=== PATIENT | female | born 1950 | race Caucasian/White ===

== ENCOUNTER → 2017-11-27 | Outpatient (CLI) | payer MEDICARE ==
[~2017-11-27] MED LIST: AMI25 PO; ASPI-1471 PO; ATOR20TA65 PO; CYCL10TA29 PO; ESCI20TA8 PO; ESOM40CA42 PO; FERR159T PO; GLY5 FT; GLY5 PO; GOLYTE PO; HYDR-2966 PO; LEVO50TA86 PO; LEVO75TA73 PO; LISI-362 PO; LOR05 PO; METF-420 PO; NAPR-1043 PO; OMEP40CA48 PO; SIMV-54 PO; SITA100T PO
[2017-11-27 09:55] LABS: PLATELET COUNT, AUTOMATED 480 K/uL (150-450)
== END ==
LOC: LAB 09:28
PROVIDERS: ATTEND Internal Medicine Endocrinology, Diabetes & Metabolism
DX: D64.9 Anemia, unspecified (principal)
CPT/HCPCS: 36415; 83540; 83550; 85025

== ENCOUNTER → 2018-01-03 | Outpatient (CLI) | payer MEDICARE ==
[2018-01-03 11:37] LABS: PLATELET COUNT, AUTOMATED 356 K/uL (150-450)
== END ==
LOC: LAB 11:05
PROVIDERS: ATTEND Internal Medicine Endocrinology, Diabetes & Metabolism
DX: D50.9 Iron deficiency anemia, unspecified (principal); E03.9 Hypothyroidism, unspecified; E11.65 Type 2 diabetes mellitus with hyperglycemia; R53.83 Other fatigue
CPT/HCPCS: 36415; 82040; 82247; 82310; 82374; 82435; 82565; 82947; 83540; 83550; 84075; 84132; 84155; 84295; 84439; 84443; 84450; 84460; 84520; 85025

== ENCOUNTER → 2018-03-07 | Outpatient (CLI) | payer MEDICARE | LOC: LAB 09:49 | PROVIDERS: ATTEND Internal Medicine Cardiovascular Disease | DX: I10 Essential (primary) hypertension (principal) | CPT/HCPCS: 36415; 82465; 83718; 84478; 85027 ==

== ENCOUNTER → 2018-03-16 | Outpatient (CLI) | payer MEDICARE ==
[~2018-03-16] MED LIST changes: -METF-420 PO; +METF-421 PO
--- NOTE | 2018-03-17 10:09 | RADIOLOGY IMAGING REPORT ---
FACILITY: [facility] [place] PATIENT NAME: Mary Dorsey : 1950 MR: [id number] V: [id number] EXAM DATE: ORDERING PHYSICIAN: JOEY PRIETO TECHNOLOGIST: Location: [facility] [place] Patient: Mary Dorsey : 1950 Visit/Account:[id number] Date of Sevice: 03/16/2018 EXAMINATION: Single Isotope SPECT Imaging with Exercise and Gated SPECT Imaging DATE OF EXAMINATION: March 16, 2018 DATE OF INTERPRETATION: March 17, 2018 REQUESTING PHYSICIAN: JOEY PRIETO INDICATION: The patient is a 67-year-old female evaluated for chest pain. PROCEDURE: After informed consent the patient received an intravenous injection of 12.3 mCi of Tc-9 9m sestamibi followed at the appropriate time interval by rest imaging. The patient then exercised a ccording to the standard Efrain protocol for 4 minutes achieving 5 METS. Resting heart rate was 73 bp m with a peak heart rate of 136 bpm which is 88 % of maximal predicted heart rate for age. Blood pr essure at rest was 132 / 71; blood pressure during exercise was 170 / 35. There was no chest pain du ring exercise. Exercise was discontinued because of leg discomfort. Baseline EKG demonstrates justo l sinus rhythm. There were no EKG changes of ischemia at peak exercise. Approximately one minute an d 30 seconds prior to the termination of exercise, the patient received an intravenous injection of 2 9.4 mCi of Tc-99m sestamibi followed by stress imaging. RAW DATA: Examination of the summed raw data revealed a good quality study. MYOCARDIAL PERFUSION: The tomographic images demonstrate a mild focal decrease in myocardial perfusi on tracer uptake in the apical anterior wall seen on stress imaging not seen on rest imaging. This de fect is also not present on prone imaging. GATED IMAGES: The gated images demonstrate an ejection fraction greater than 70% with no wall motion abnormality IMPRESSION: 1. Probably abnormal myocardial perfusion scan with a mild focal reversible defect in the apical ant erior wall consistent with ischemia. However, this defect is not present on prone imaging and could r epresent shifting breast attenuation artifact. 2. Probably abnormal myocardial perfusion scan. 3. Normal LV systolic function; LVEF greater than 70%. 4. Based on the results of this exam, the patient appears to be at intermediate risk for future cardi ovascular events. Report Dictated By: Caitlin Jenkins at 03/17/2018 10:03 AM Report E-Signed By: Caitlin Jenkins at 03/17/2018 10:06 AM WSN:[id number]
--- NOTE | 2018-03-17 13:12 | RT STRESS TEST REPORT ---
FACILITY: [facility] PATIENT NAME: BOBY KAISER : [id number] MR: [id number] V: [id number] EXAM DATE: ORDERING PHYSICIAN: JOSIAH MALAVE TECHNOLOGIST: [employer] Time: 2018-03-16 14:25:03 Total Exercise Time: 00:04:20 Test Indications: Chest Discomfort Medications: see list Protocol: GLORY 2 Max HR: 136 BPM 88% of Pred: 154 BPM Max BP: 170/065 mmHG Max Work Load: 4.6 METS Confirmed by NICKIE CARDENAS ([id number]) on 03/17/2018 1:11:41 PM Referred By: Josiah Malave Overread By: NICKIE CARDENAS
== END ==
LOC: NUC 03:26
PROVIDERS: ATTEND Internal Medicine Cardiovascular Disease
DX: R07.2 Precordial pain (principal)
CPT/HCPCS: 78452; 93017; A9500

== ENCOUNTER → 2018-06-11 | Outpatient (CLI) | payer MEDICARE ==
--- NOTE | 2018-06-11 14:30 | RADIOLOGY IMAGING REPORT ---
[place] [facility] [place] NAME: Mary Dorsey : 1950 MR: [id number] V: [id number] EXAM DATE: ORDERING PHYSICIAN: SHADE PUENTES TECHNOLOGIST: Location: [facility] [place] Patient: Mary Dorsey : 1950 Visit/Account:[id number] Date of Sevice: 06/11/2018 Exam type: CHEST PA AND LAT History: Cough x2 weeks, smoker 45 years Comparison: February 01, 2016. Findings: The lungs are free of acute effusions, infiltrates or edema. The cardiac silhouette is normal in siz e. The trachea is in midline. There is a dextroconvex scoliosis of the thoracic spine with degenera tive changes. IMPRESSION: 1. No acute cardiopulmonary process is seen Report Dictated By: Haley Nation MD at 06/11/2018 2:25 PM Report E-Signed By: Haley Nation MD at 06/11/2018 2:26 PM WSN:[email or web address]
== END ==
LOC: RAD 12:04
PROVIDERS: ATTEND Nurse Practitioner Family
DX: M41.84 Other forms of scoliosis, thoracic region (principal); M51.34 Other intervertebral disc degeneration, thoracic region
CPT/HCPCS: 71046

== ENCOUNTER → 2018-10-19 | Outpatient (CLI) | payer MEDICARE ==
[~2018-10-19] MED LIST changes: -METF-421 PO; +METF-452 PO
[2018-10-19 13:20] LABS: LDL CHOLESTEROL 52 mg/dl
== END ==
LOC: LAB 12:10
PROVIDERS: ATTEND Internal Medicine Cardiovascular Disease
DX: I25.10 Atherosclerotic heart disease of native coronary artery without angina pectoris (principal)
CPT/HCPCS: 36415; 82040; 82247; 82310; 82374; 82435; 82465; 82565; 82947; 83718; 84075; 84132; 84155; 84295; 84450; 84460; 84478; 84520

== ENCOUNTER → 2019-02-04 | Outpatient (CLI) | payer MEDICARE ==
[2019-02-04 11:00] LABS: LDL CHOLESTEROL 52 mg/dl
== END ==
LOC: LAB 10:00
PROVIDERS: ATTEND Nurse Practitioner Family
DX: E78.5 Hyperlipidemia, unspecified (principal); E03.9 Hypothyroidism, unspecified; E11.9 Type 2 diabetes mellitus without complications
CPT/HCPCS: 36415; 82040; 82247; 82310; 82374; 82435; 82465; 82565; 82947; 83036; 83718; 84075; 84132; 84155; 84295; 84443; 84450; 84460; 84478; 84520

== ENCOUNTER → 2019-03-07 | Outpatient (CLI) | payer MEDICARE ==
--- NOTE | 2019-03-07 16:45 | RADIOLOGY IMAGING REPORT ---
FACILITY: [facility] PATIENT NAME: Mary Dorsey : 1950 MR: [id number] V: [id number] EXAM DATE: ORDERING PHYSICIAN: TERE MELÉNDEZ TECHNOLOGIST: Location: [facility] [place] Patient: Mary Dorsey : 1950 Visit/Account:[id number] Date of Sevice: 03/07/2019 CERVICAL SPINE 2 OR 3 VIEW Indication: Pain., Comparison: None available. Findings: Cervical spine: The prevertebral soft tissues are within normal limits. The vertebral body heights are well maintained. There is moderate to severe degenerative disc space disease noted at C5-6 and C6-7. Anterior endplat e osteophytes are noted. No spondylolisthesis is identified. Thoracic spine: The vertebral body heights and disc spaces are well maintained. There is no acute osseous or acute alignment abnormality. There is a mild dextroconvex curvature of the midthoracic spine. There is associated multilevel dege nerative disc space disease. No spondylolisthesis is identified. IMPRESSION: 1. Moderate to severe degenerative disc space disease at C5-6 and C6-7 2. Mild diffuse multilevel degenerative disc space disease noted within the thoracic spine secondary to dextroscoliotic curvature Report Dictated By: Silas Pedroza at 03/07/2019 4:34 PM Report E-Signed By: Silas Pedroza at 03/07/2019 4:40 PM WSN:[email or web address]
--- NOTE | 2019-03-07 16:52 | RADIOLOGY IMAGING REPORT ---
FACILITY: [facility] - [place] PATIENT NAME: Mary Dorsey : 1950 MR: [id number] V: [id number] EXAM DATE: ORDERING PHYSICIAN: TERE MELÉNDEZ TECHNOLOGIST: Location: [facility] [place] Patient: Mary Dorsey : 1950 Visit/Account:[id number] Date of Sevice: 03/07/2019 XR THORACIC SPINE AP & LAT INDICATION: Back pain. COMPARISON: None available FINDINGS: The vertebral body heights and disc spaces are well maintained. There is no acute osseous or acute alignment abnormality. There is a mild dextro convex curvature of the midthoracic spine. There is associated multilevel deg enerative disc space disease. No spondylolisthesis is identified. IMPRESSION: 1. No acute osseous or acute alignment abnormality of the thoracic spine. 2. Mild degenerative changes as above. Report Dictated By: Silas Pedroza at 03/07/2019 4:47 PM Report E-Signed By: Silas Pedroza at 03/07/2019 4:48 PM WSN:[email or web address]
== END ==
LOC: RAD 15:36
PROVIDERS: ATTEND Nurse Practitioner Family
DX: M50.322 Other cervical disc degeneration at C5-C6 level (principal)
CPT/HCPCS: 72040; 72070